=== PATIENT | female | born 1990 | race Caucasian/White ===

== ENCOUNTER 2017-07-29 21:44 | Inpatient (IN) | payer OTHER ==
[~2017-07-29] VITALS: Ht 157.5 cm; Wt 64.4 kg
[~2017-07-29 21:44] MED LIST: CIPR500T94 PO; PHEN-318 PO
--- NOTE | 2017-07-29 21:48 | PHYS DOC ---
Past Medical History Past Medical History: Migraines, UTI Additional Past Medical Histor: 5 months post Past Surgical History: No Surgical History Alcohol Use: None Drug Use: Marijuana Adult General Chief Complaint Chief Complaint: ABDOMINAL PAIN HPI HPI Patient is a 27 year old female who presents with suprapubic pain that started last night. She states is sharp stabbing and is constant. She states moving makes it feel worse. She had some discomfort which had a bowel movement but denies any dysuria. She is 2 weeks late on her period and states that she is currently having some vaginal bleeding. She denies any discharge. She denies any past medical history regarding surgeries or medications. She denies any nausea vomiting. She did take some Advil earlier today and states the pain went away for a couple hours but then returned. Review of Systems Review of Systems Constitutional: Denies fever or chills [] Eyes: Denies change in visual acuity, redness, or eye pain [] HENT: Denies nasal congestion or sore throat [] Respiratory: Denies cough or shortness of breath [] Cardiovascular: No additional information not addressed in HPI [] GI: Positive for abdominal pain, Denies nausea, vomiting, bloody stools or diarrhea [] : Denies dysuria or hematuria [] Musculoskeletal: Denies back pain or joint pain [] Integument: Denies rash or skin lesions [] Neurologic: Denies headache, focal weakness or sensory changes [] Endocrine: Denies polyuria or polydipsia [] All other systems were reviewed and found to be within normal limits, except as documented in this note. Current Medications Current Medications Current Medications Medications (Trade) Dose Ordered Sig/Oanh Start Time Stop Time Status Last Admin Dose Admin Ceftriaxone Sodium 50 ml @ 100 mls/hr 1X ONCE 07/30/17 00:30 07/30/17 00:59 DC 07/30/17 00:26 100 MLS/HR Info (Do NOT chart on this entry -- for MONITORING) 1 each PRN DAILY PRN 07/29/17 23:15 07/31/17 23:14 Iohexol (Omnipaque 300 Mg/ml) 100 ml 1X ONCE 07/29/17 23:30 07/29/17 23:31 DC 07/29/17 23:38 100 ML Morphine Sulfate 4 mg PRN Q15MIN PRN 07/29/17 22:15 07/30/17 22:14 07/30/17 02:20 4 MG Ondansetron HCl (Zofran) 4 mg 1X ONCE 07/29/17 22:30 07/29/17 22:31 DC 07/29/17 22:34 4 MG Sodium Chloride 1,000 ml @ 1,000 mls/hr Q1H 07/29/17 22:30 07/29/17 23:29 DC 07/29/17 22:34 1,000 MLS/HR Allergies Allergies Allergies Coded Allergies Type Severity Reaction Last Updated Verified No Known Drug Allergies 10/28/13 No Physical Exam Physical Exam Constitutional: Well developed, well nourished, no acute distress, non-toxic appearance. [] HENT: Normocephalic, atraumatic, bilateral external ears normal, oropharynx moist, no oral exudates, nose normal. [] Eyes: PERRLA, EOMI, conjunctiva normal, no discharge. [] Neck: Normal range of motion, no tenderness, supple, no stridor. [] Cardiovascular:Heart rate regular rhythm, no murmur [] Lungs & Thorax: Bilateral breath sounds clear to auscultation [] Abdomenpelvic exam: Bowel sounds normal, soft, tender to palpation diffusely, no masses, no pulsatile masses. Pelvic exam shows normal external genitalia, no discharge noted, tender palpation diffusely on manual exam, refuse and recycling worker present Skin: Warm, dry, no erythema, no rash. [] Back: No tenderness, no CVA tenderness. [] Extremities: No tenderness, no cyanosis, no clubbing, ROM intact, no edema. [] Neurologic: Alert and oriented X 3, normal motor function, normal sensory function, no focal deficits noted. [] Psychologic: Affect normal, judgement normal, mood normal. [] Current Patient Data Vital Signs Vital Signs Date Time Temp Pulse Resp B/P (MAP) Pulse Ox O2 Delivery O2 Flow Rate FiO2 07/30/17 00:30 138 23 111/56 (74) 98 07/29/17 23:43 Room Air 07/29/17 22:00 100.7 100.7 Lab Values Laboratory Tests Test 07/29/17 21:46 07/29/17 22:01 07/29/17 22:05 Urine Collection Type Unknown Urine Color Yellow Urine Clarity Clear Urine pH 6.0 Urine Specific [place] >=1.030 Urine Protein Negative mg/dL (NEG-TRACE) Urine Glucose (UA) Negative mg/dL (NEG) Urine Ketones (Stick) Negative mg/dL (NEG) Urine Blood Trace (NEG) Urine Nitrite Negative (NEG) Urine Bilirubin Negative (NEG) Urine Urobilinogen Dipstick 1.0 mg/dL (0.2 mg/dL) Urine Leukocyte Esterase Moderate (NEG) Urine RBC 11-20 /HPF (0-2) Urine WBC Tntc /HPF (0-4) Urine Squamous Epithelial Cells Few /LPF Urine Bacteria Few /HPF (0-FEW) Urine Test Negative (NEG) Urine Opiates Screen Neg (NEG) Urine Methadone Screen Neg (NEG) Urine Barbiturates Neg (NEG) Urine Phencyclidine Screen Neg (NEG) Urine Amphetamine/Methamphetamine Neg (NEG) Urine Benzodiazepines Screen Neg (NEG) Urine Cocaine Screen Neg (NEG) Urine Cannabinoids Screen Neg (NEG) Urine Ethyl Alcohol Neg (NEG) POC Urine HCG, Qualitative Hcg negative (Negative) White Blood Count 24.5 x10^3/uL (4.0-11.0) H Red Blood Count 4.04 x10^6/uL (3.50-5.40) Hemoglobin 12.5 g/dL (12.0-15.5) Hematocrit 37.9 % (36.0-47.0) Mean Corpuscular Volume 94 fL (79-100) Mean Corpuscular Hemoglobin 31 pg (25-35) Mean Corpuscular Hemoglobin Concent 33 g/dL (31-37) Red Cell Distribution Width 12.8 % (11.5-14.5) Platelet Count 288 x10^3/uL (140-400) Neutrophils (%) (Auto) 88 % (31-73) H Lymphocytes (%) (Auto) 7 % (24-48) L Monocytes (%) (Auto) 5 % (0-9) Eosinophils (%) (Auto) 0 % (0-3) Basophils (%) (Auto) 0 % (0-3) Neutrophils # (Auto) 21.5 x10^3uL (1.8-7.7) H Lymphocytes # (Auto) 1.7 x10^3/uL (1.0-4.8) Monocytes # (Auto) 1.1 x10^3/uL (0.0-1.1) Eosinophils # (Auto) 0.1 x10^3/uL (0.0-0.7) Basophils # (Auto) 0.1 x10^3/uL (0.0-0.2) Segmented Neutrophils % 87 % (35-66) H Band Neutrophils % 8 % (0-9) Lymphocytes % 3 % (24-48) L Monocytes % 2 % (0-10) Platelet Estimate Adequate (ADEQUATE) Prothrombin Time 11.7 SEC (11.7-14.0) Prothrombin Time INR 0.9 (0.8-1.1) PTT 30 SEC (24-38) Sodium Level 140 mmol/L (136-145) Potassium Level 3.8 mmol/L (3.5-5.1) Chloride Level 105 mmol/L (98-107) Carbon Dioxide Level 27 mmol/L (21-32) Anion Gap 8 (6-14) Blood Urea Nitrogen 20 mg/dL (7-20) Creatinine 1.0 mg/dL (0.6-1.0) Estimated GFR (Cockcroft-Gault) 66.5 Glucose Level 112 mg/dL (70-99) H Lactic Acid Level 1.1 mmol/L (0.4-2.0) Calcium Level 9.2 mg/dL (8.5-10.1) Total Bilirubin 0.2 mg/dL (0.2-1.0) Direct Bilirubin 0.1 mg/dL (0.0-0.2) Aspartate Amino Transferase (AST) 12 U/L (15-37) L Alanine Aminotransferase (ALT) 15 U/L (14-59) Alkaline Phosphatase 114 U/L (46-116) Creatine Kinase 36 U/L (26-192) Creatine Kinase MB (Mass) < 0.5 ng/mL (0.0-3.6) Creatine Kinase MB Relative Index 1.4 % (0-4) Total Protein 7.8 g/dL (6.4-8.2) Albumin 3.8 g/dL (3.4-5.0) Lipase 94 U/L (73-393) Laboratory Tests 07/29/17 22:05 Laboratory Tests 07/29/17 22:05 Microbiology 07/29/17 Wet Prep - Final, Complete Microbiology 07/29/17 Wet Prep - Final, Complete EKG EKG [] Radiology/Procedures Radiology/Procedures [facility] [address] [place] [address] IMAGING REPORT Signed PATIENT: NATALIA FREDERICK ACCOUNT: [id number] : 1990 LOCATION: ER AGE: 27 SEX: F EXAM STATUS: REG ER ORD. PHYSICIAN: MER THOMAS MD REASON: abd pain PROCEDURE: CT ABD PELV W/ IV CONTRST ONLY CT scan abdomen and pelvis with contrast 07/29/2017 CLINICAL HISTORY: Sharp abdominal pain. TECHNIQUE: After the intravenous administration of 75 cc of Omnipaque 300 only, contiguous, 5 mm axial sections were obtained through the abdomen and pelvis. One or more of the following individualized dose reduction techniques were utilized for this study: 1. Automated exposure control. 2. Adjustment of the mA and/or kV according to patient size. 3. Use of iterative reconstruction technique. FINDINGS: Images through the lung bases are within normal limits. The liver, spleen, pancreas, adrenal glands and kidneys are within normal limits. The abdominal aorta tapers normally. The gallbladder is well-distended. No free fluid or free air is seen within the abdomen. Mildly dilated fluid-filled small bowel loops are seen within the lower mid abdomen extending to the pelvis without definite evidence of bowel obstruction. Air and stool is seen throughout the colon. The appendix is well-visualized and is within normal limits. Images through the pelvis demonstrate the urinary bladder distended with urine. No adnexal mass is seen. No free fluid is noted. Minimal S-shaped curvature of the thoracolumbar spine is noted. IMPRESSION: No acute abnormality is seen. Electronically signed by: Juan Robles MD (07/29/2017 11:53 PM) [facility] DICTATED and SIGNED BY: JUAN ROBLES MD DATE: 07/29/17 [id number] CC: MER THOMAS MD; NO PCP ~ [facility] [address] [place] [address] IMAGING REPORT Signed PATIENT: NATALIA FREDERICK ACCOUNT: [id number] : 1990 LOCATION: ER AGE: 27 SEX: F EXAM STATUS: REG ER ORD. PHYSICIAN: MER THOMAS MD REASON: pelvic pain PROCEDURE: PELVIS W/TV Pelvic ultrasound to include transabdominal and transvaginal imaging 07/29/2017 Clinical history: Pelvic pain for 2 days. TECHNIQUE: Using the distended urinary bladder as a sonographic window, a real-time ultrasound examination of the pelvis was performed. Additionally in an attempt to better evaluate the uterus and adnexa, a transvaginal ultrasound study was performed. Multiple images were obtained. FINDINGS: The uterus is within normal limits in size and echogenicity. It measures 9.7 x 5.7 x 4.3 cm in longitudinal, transverse, and AP dimensions. The endometrial echo complex measures 4 mm in thickness which is within normal limits. Minimal amount of fluid is seen within the endometrial canal. Both ovaries are within normal limits in size and echogenicity. The right ovary measures 4.2 x 2.8 x 2.7 cm in size. The left ovary measures 3.9 x 2.4 x 2.2 cm in size. Normal color flow and pulse doppler imaging to both ovaries is seen. No free fluid is noted. IMPRESSION: Negative study. Electronically signed by: Juan Robles MD (07/29/2017 11:56 PM) [facility] DICTATED and SIGNED BY: JUAN ROBLES MD DATE: 07/29/17 [id number] CC: MER THOMAS MD; NO PCP ~ RUN DATE: 07/30/17 PAGE 1 RUN TIME: 25 [facility] [address] [place] [address] Ty Pelaez M.D., [employer] PATIENT: NATALIA FREDERICK ACCT: [id number] LOC: ER U : [id number] AGE/SX: 27/F ROOM: REG : 07/29/[address]: MER THOMAS MD : 1990 BED: DIS : STATUS: REG ER TLOC: SPEC #: [id number] DENISA: 07/29/17 STATUS: COMP REQ #: [id number] RECD: 07/29/[address]: MER THOMAS MD SOURCE: VAGINAL ENTR: 07/29/[address]: VIK GOMEZ SPDESC: ORDERED: WET PREP COMMENTS: Has specimen been collected/obtained? Y Procedure Result WET PREP Final YEAST NONE SEEN TRICHOMONAS NONE SEEN CLUE CELLS NONE SEEN SQUAMOUS EPS FEW END OF REPORT Impressions: Abdominal pain Course & Med Decision Making Course & Med Decision Making Pertinent Labs and Imaging studies reviewed. (See chart for details) Patient has a leukocytosis of 24,000, she does have a fever upon presentation. She is tachycardic with a rate in the 140s. CT scan of her abdomen pelvis and an ultrasound of pelvis did not show any acute abnormality's. She does have white blood cells too numerous to count of urine with a few bacteria and few squames. I did give her gram of Rocephin and 500 Flagyl and she will need to be admitted with surgery consultation. I did speak with Dr. De Jesus regarding the patient's vital signs, physical exam with her diffuse tenderness to palpation worse in the lower quadrants, her labs with her leukocytosis of 24,000 and her tachycardia in the 150s. I also informed him of the CT and pelvic ultrasound findings that were normal. He asked for [facility] to be consult would. She's received Rocephin, Flagyl and I've added doxycycline IV. I paged [facility] for consultation and at the time the patient went to the floor did not call back. I informed the floor to continue paging [facility] further consultation. Dragon Disclaimer Dragon Disclaimer This electronic medical record was generated, in whole or in part, using a voice recognition dictation system. Departure Departure Impression: Primary Impression: Abdominal pain Disposition: ADMITTED INPATIENT Admitting Physician: Andrade Garcia Condition: CRITICAL Referrals: NO PCP (PCP) Scripts No Active Prescriptions or Reported Meds MER THOMAS MD Jul 29, 2017 21:48
[2017-07-29 22:18] LABS: BASO # 0.1 x10^3/uL (0.0-0.2); BASO % 0 % (0-3); EOS % 0 % (0-3); HEMATOCRIT 37.9 % (36.0-47.0); HEMOGLOBIN 12.5 g/dL (12.0-15.5); LYMPH # 1.7 x10^3/uL (1.0-4.8); LYMPH % 7 % (24-48); MEAN CORPUSCULAR HEMOGLOBIN 31 pg (25-35); MEAN CORPUSCULAR HGB CONC 33 g/dL (31-37); MEAN CORPUSCULAR VOLUME 94 fL (79-100); MONO % 5 % (0-9); NEUT % 88 % (31-73); PLATELET COUNT 288 x10^3/uL (140-400); RED BLOOD COUNT 4.04 x10^6/uL (3.50-5.40); RED CELL DISTRIBUTION WIDTH 12.8 % (11.5-14.5); WHITE BLOOD COUNT 24.5 x10^3/uL (4.0-11.0)
[2017-07-29 22:20] LABS: BILIRUBIN,URINE NEGATIVE (NEG); GLUCOSE,URINE NEGATIVE (NEG); NITRITE,URINE NEGATIVE (NEG); PROTEIN,URINE NEGATIVE (NEG-TRACE)
[2017-07-29] MEDS ORDERED: IV NORMAL SALINE 1000ML BAG 1,000 ML IV SCH (22:30)
[2017-07-29] MEDS ORDERED: ONDANSETRON PF 4 MG/2 ML VIAL. IV ONE (22:30)
[2017-07-29] MEDS: MORPHINE SULFATE 4 MG/ML DISP.SYRIN. IV/SQ PRN ×3 (22:33→23:43)
[2017-07-29 22:36] LABS: INR 0.9 (0.8-1.1); PROTHROMBIN TIME PATIENT 11.7 SEC (11.7-14.0)
[2017-07-29 22:37] LABS: NEG OBC UR NEG; POS OBC UR POS
[2017-07-29 22:38] LABS: BACTERIA,URINE FEW /HPF (0-FEW); SQUAMOUS EPITHELIAL CELL,UR FEW /LPF; WBC,URINE TNTC /HPF (0-4)
[2017-07-29 22:41] LABS: BARBITURATES NEG (NEG); BENZODIAZEPINES NEG (NEG); CANNABINOIDS NEG (NEG); COCAINE NEG (NEG); METHADONE NEG (NEG); OPIATES NEG (NEG); PHENCYCLIDINE NEG (NEG)
[2017-07-29 22:45] LABS: CALCIUM 9.2 mg/dL (8.5-10.1); GFR 66.5; POTASSIUM 3.8 mmol/L (3.5-5.1)
[2017-07-29 22:55] LABS: ALBUMIN 3.8 g/dL (3.4-5.0); DIRECT BILIRUBIN 0.1 mg/dL (0.0-0.2); TOTAL BILIRUBIN 0.2 mg/dL (0.2-1.0); TOTAL PROTEIN 7.8 g/dL (6.4-8.2)
[2017-07-29 23:00] LABS: CREATINE KINASE 36 U/L (26-192)
[2017-07-29 23:12] LABS: CKMB MASS < 0.5 ng/mL (0.0-3.6)
[2017-07-29] MEDS ORDERED: CONTRAST GIVEN MC PRN (23:15)
[2017-07-29] MEDS ORDERED: IOHEXOL 300 MG/ML 100ML VIAL. IV ONE (23:30)
--- NOTE | 2017-07-29 23:57 | RAD ---
CT scan abdomen and pelvis with contrast 07/29/2017 CLINICAL HISTORY: Sharp abdominal pain. TECHNIQUE: After the intravenous administration of 75 cc of Omnipaque 300 only, contiguous, 5 mm axial sections were obtained through the abdomen and pelvis. One or more of the following individualized dose reduction techniques were utilized for this study: 1. Automated exposure control. 2. Adjustment of the mA and/or kV according to patient size. 3. Use of iterative reconstruction technique. FINDINGS: Images through the lung bases are within normal limits. The liver, spleen, pancreas, adrenal glands and kidneys are within normal limits. The abdominal aorta tapers normally. The gallbladder is well-distended. No free fluid or free air is seen within the abdomen. Mildly dilated fluid-filled small bowel loops are seen within the lower mid abdomen extending to the pelvis without definite evidence of bowel obstruction. Air and stool is seen throughout the colon. The appendix is well-visualized and is within normal limits. Images through the pelvis demonstrate the urinary bladder distended with urine. No adnexal mass is seen. No free fluid is noted. Minimal S-shaped curvature of the thoracolumbar spine is noted. IMPRESSION: No acute abnormality is seen. Electronically signed by: Juan Robles MD (07/29/2017 11:53 PM) [facility]
--- NOTE | 2017-07-29 23:59 | RAD ---
Pelvic ultrasound to include transabdominal and transvaginal imaging 07/29/2017 Clinical history: Pelvic pain for 2 days. TECHNIQUE: Using the distended urinary bladder as a sonographic window, a real-time ultrasound examination of the pelvis was performed. Additionally in an attempt to better evaluate the uterus and adnexa, a transvaginal ultrasound study was performed. Multiple images were obtained. FINDINGS: The uterus is within normal limits in size and echogenicity. It measures 9.7 x 5.7 x 4.3 cm in longitudinal, transverse, and AP dimensions. The endometrial echo complex measures 4 mm in thickness which is within normal limits. Minimal amount of fluid is seen within the endometrial canal. Both ovaries are within normal limits in size and echogenicity. The right ovary measures 4.2 x 2.8 x 2.7 cm in size. The left ovary measures 3.9 x 2.4 x 2.2 cm in size. Normal color flow and pulse doppler imaging to both ovaries is seen. No free fluid is noted. IMPRESSION: Negative study. Electronically signed by: Juan Robles MD (07/29/2017 11:56 PM) [facility]
[2017-07-30] VITALS (14 sets, daily range): BP systolic 83–148; BP diastolic 40–73
[2017-07-30] MEDS ORDERED: ACETAMINOPHEN 500 MG TABLET PO ONE (01:00)
[2017-07-30] MEDS ORDERED: IV NORMAL SALINE 1000ML BAG 1,000 ML IV ONE (01:00)
[2017-07-30] MEDS: MORPHINE SULFATE 4 MG/ML DISP.SYRIN. IV/SQ PRN ×2 (01:13→02:20)
[2017-07-30] MEDS ORDERED: ONDANSETRON PF 4 MG/2 ML VIAL. IV PRN (01:15)
[2017-07-30] MEDS: DOXYCYCLINE HYCLATE 100 MG in IV DEXTROSE 5% 100 ML IV SCH ×3 (02:08→21:24)
[2017-07-30 05:13] LABS: PLT ESTIMATE ADEQUATE (ADEQUATE)
[2017-07-30] MEDS: MORPHINE SULFATE 4 MG/ML DISP.SYRIN. IV PRN ×3 (08:58→21:30)
[2017-07-30] MEDS ORDERED: FLU VACC QS2017-18 (36MOS+)/PF 0.5 ML SYRINGE. VAX IM ONE (09:00)
[2017-07-30] MEDS ORDERED: INFLUENZA VAX SCREEN BY RX. MC ONE (09:00)
[2017-07-30] MEDS: LACTOBACILLUS RHAMNOSUS GG 1 CAPSULE. PO SCH ×2 (09:00→21:23)
--- NOTE | 2017-07-30 11:28 | PDOC2 ---
CONSULT Date of Consult Date of Consult DATE: 07/30/17 TIME: 11:23 Reason for Consult Reason for Consult: Abd pain Referring Physician Referring Physician: Radha Identification/Chief Complaint Chief Complaint Abd pain Problems: Source Source: Chart review, Patient History of Present Illness Reason for Visit: 27 yo F with c/o suprapubic abd pain, radiating to her back bilaterally. denies N/V, F/c. Multiple previous episodes of UTI, but no current dysuria. Denies anorexia. Feels much better today, although still some pain. Past Medical History CENTRAL NERVOUS SYSTEM: Migraine Renal/: UTI, Other (5 months ) Past Surgical History Past Surgical History: No pertinent history Family History Family History: No Significant Social History No ALCOHOL: none Drugs: Marijuana Current Problem List Problem List Problems Medical Problems: (1) Abdominal pain Status: Acute Current Medications Current Medications Current Medications Morphine Sulfate 4 mg PRN Q15MIN PRN IV/SQ PAIN GREATER THAN 3/10 Last administered on 07/30/17 02:20; Start 07/29/17 at 22:15; Stop 07/30/17 at 22 :14 Sodium Chloride 1,000 ml @ 1,000 mls/hr Q1H IV Last administered on 22:34; Start 07/29/17 at 22:30; Stop 07/29/17 at 23:29; Status DC Ondansetron HCl (Zofran) 4 mg 1X ONCE IV Last administered on 07/29/17 22:34 ; Start 07/29/17 at 22:30; Stop 07/29/17 at 22:31; Status DC Iohexol (Omnipaque 300 Mg/ml) 100 ml 1X ONCE IV Last administered on 23:38; Start 07/29/17 at 23:30; Stop 07/29/17 at 23:31; Status DC Info (Do NOT chart on this entry -- for MONITORING) 1 each PRN DAILY PRN MC SEE COMMENTS; Start 07/29/17 at 23:15; Stop 07/31/17 at 23:14 Ceftriaxone Sodium 50 ml @ 100 mls/hr 1X ONCE IV Last administered on 00:26; Start 07/30/17 at 00:30; Stop 07/30/17 at 00:59; Status DC Metronidazole 100 ml @ 100 mls/hr Q8HRS IV Last administered on 07/30/17 05: 56; Start 07/30/17 at 01:00 Sodium Chloride 1,000 ml @ 1,000 mls/hr 1X ONCE IV Last administered on 07/30 00:48; Start 07/30/17 at 01:00; Stop 07/30/17 at 01:59; Status DC Acetaminophen (Tylenol) 1,000 mg 1X ONCE PO Last administered on 07/30/17 00 :53; Start 07/30/17 at 01:00; Stop 07/30/17 at 01:01; Status DC Doxycycline Hyclate 100 mg/ Dextrose 100 ml @ 50 mls/hr BID IV Last administered on 07/30/17 08:59; Start 07/30/17 at 02:00 Ondansetron HCl (Zofran) 4 mg PRN Q8HRS PRN IV NAUSEA/VOMITING Last administered on 07/30/17 11:00; Start 07/30/17 at 01:15; Stop 07/31/17 at 01 :14 Morphine Sulfate 4 mg PRN Q2HR PRN IV SEVERE PAIN Last administered on 08:58; Start 07/30/17 at 01:15; Stop 07/31/17 at 01:14 Info (Do NOT chart on this placeholder) 1 each 1X ONCE MC ; Start 07/30/17 at 09:00; Stop 07/30/17 at 09:01; Status UNV Influenza Virus Vaccine Quadrival (Fluarix Quad [id number] Syringe) 0.5 ml ONCE ONCE VAX IM Last administered on 07/30/17 08:59; Start 07/30/17 at 09:00; Stop 07/30/17 at 09:01; Status DC Lactobacillus Rhamnosus (Culturelle) 1 cap BID PO ; Start 07/30/17 at 09:00 Ceftriaxone Sodium 1 gm/ Dextrose 50 ml @ 100 mls/hr Q24H IV ; Start 07/30/17 at 11:15; Stop 07/30/17 at 11:21; Status DC Ceftriaxone Sodium (Rocephin) 1 gm Q24H IVP ; Start 07/30/17 at 12:00 Active Scripts Active No Active Prescriptions or Reported Medications Allergies Allergies: Coded Allergies: No Known Drug Allergies (Unverified , 10/28/13) ROS Gastrointestinal: Yes Abdominal Pain Physical Exam General: Alert, Oriented X3, Cooperative, mild distress HEENT: Atraumatic, EOMI Lungs: Normal air movement Abdomen: Soft, Other (TTP suprapubic, B CVA margin) Neuro: Normal speech, Sensation intact Psych/Mental Status: Mental status NL, Mood NL Vitals VITALS Vital Signs Date Time Temp Pulse Resp B/P (MAP) Pulse Ox O2 Delivery O2 Flow Rate FiO2 07/30/17 11:00 104 16 110/67 (81) 96 07/30/17 10:00 Room Air 07/30/17 08:00 98.8 98.8 Labs Labs Laboratory Tests Test 07/29/17 21:46 07/29/17 22:01 07/29/17 22:05 07/30/17 05:25 Urine Collection Type Unknown Urine Color Yellow Urine Clarity Clear Urine pH 6.0 Urine Specific [place] >=1.030 Urine Protein Negative mg/dL (NEG-TRACE) Urine Glucose (UA) Negative mg/dL (NEG) Urine Ketones (Stick) Negative mg/dL (NEG) Urine Blood Trace (NEG) Urine Nitrite Negative (NEG) Urine Bilirubin Negative (NEG) Urine Urobilinogen Dipstick 1.0 mg/dL (0.2 mg/dL) Urine Leukocyte Esterase Moderate (NEG) Urine RBC 11-20 /HPF (0-2) Urine WBC Tntc /HPF (0-4) Urine Squamous Epithelial Cells Few /LPF Urine Bacteria Few /HPF (0-FEW) Urine Test Negative (NEG) Urine Opiates Screen Neg (NEG) Urine Methadone Screen Neg (NEG) Urine Barbiturates Neg (NEG) Urine Phencyclidine Screen Neg (NEG) Urine Amphetamine/Methamphetamine Neg (NEG) Urine Benzodiazepines Screen Neg (NEG) Urine Cocaine Screen Neg (NEG) Urine Cannabinoids Screen Neg (NEG) Urine Ethyl Alcohol Neg (NEG) Bedside Urine HCG, Qualitative Hcg negative (Negative) White Blood Count 24.5 x10^3/uL (4.0-11.0) Red Blood Count 4.04 x10^6/uL (3.50-5.40) Hemoglobin 12.5 g/dL (12.0-15.5) Hematocrit 37.9 % (36.0-47.0) Mean Corpuscular Volume 94 fL (79-100) Mean Corpuscular Hemoglobin 31 pg (25-35) Mean Corpuscular Hemoglobin Concent 33 g/dL (31-37) Red Cell Distribution Width 12.8 % (11.5-14.5) Platelet Count 288 x10^3/uL (140-400) Neutrophils (%) (Auto) 88 % (31-73) Lymphocytes (%) (Auto) 7 % (24-48) Monocytes (%) (Auto) 5 % (0-9) Eosinophils (%) (Auto) 0 % (0-3) Basophils (%) (Auto) 0 % (0-3) Neutrophils # (Auto) 21.5 x10^3uL (1.8-7.7) Lymphocytes # (Auto) 1.7 x10^3/uL (1.0-4.8) Monocytes # (Auto) 1.1 x10^3/uL (0.0-1.1) Eosinophils # (Auto) 0.1 x10^3/uL (0.0-0.7) Basophils # (Auto) 0.1 x10^3/uL (0.0-0.2) Segmented Neutrophils % 87 % (35-66) Band Neutrophils % 8 % (0-9) Lymphocytes % 3 % (24-48) Monocytes % 2 % (0-10) Platelet Estimate Adequate (ADEQUATE) Prothrombin Time 11.7 SEC (11.7-14.0) Prothromb Time International Ratio 0.9 (0.8-1.1) Activated Partial Thromboplast Time 30 SEC (24-38) Sodium Level 140 mmol/L (136-145) Potassium Level 3.8 mmol/L (3.5-5.1) Chloride Level 105 mmol/L (98-107) Carbon Dioxide Level 27 mmol/L (21-32) Anion Gap 8 (6-14) Blood Urea Nitrogen 20 mg/dL (7-20) Creatinine 1.0 mg/dL (0.6-1.0) Estimated GFR (Cockcroft-Gault) 66.5 Glucose Level 112 mg/dL (70-99) Lactic Acid Level 1.1 mmol/L (0.4-2.0) 1.0 mmol/L (0.4-2.0) Calcium Level 9.2 mg/dL (8.5-10.1) Total Bilirubin 0.2 mg/dL (0.2-1.0) Direct Bilirubin 0.1 mg/dL (0.0-0.2) Aspartate Amino Transf (AST/SGOT) 12 U/L (15-37) Alanine Aminotransferase (ALT/SGPT) 15 U/L (14-59) Alkaline Phosphatase 114 U/L (46-116) Creatine Kinase 36 U/L (26-192) Creatine Kinase MB (Mass) < 0.5 ng/mL (0.0-3.6) Creatine Kinase MB Relative Index 1.4 % (0-4) Total Protein 7.8 g/dL (6.4-8.2) Albumin 3.8 g/dL (3.4-5.0) Lipase 94 U/L (73-393) Laboratory Tests Test 07/29/17 21:46 07/29/17 22:01 07/29/17 22:05 07/30/17 05:25 Urine Collection Type Unknown Urine Color Yellow Urine Clarity Clear Urine pH 6.0 Urine Specific [place] >=1.030 Urine Protein Negative mg/dL (NEG-TRACE) Urine Glucose (UA) Negative mg/dL (NEG) Urine Ketones (Stick) Negative mg/dL (NEG) Urine Blood Trace (NEG) Urine Nitrite Negative (NEG) Urine Bilirubin Negative (NEG) Urine Urobilinogen Dipstick 1.0 mg/dL (0.2 mg/dL) Urine Leukocyte Esterase Moderate (NEG) Urine RBC 11-20 /HPF (0-2) Urine WBC Tntc /HPF (0-4) Urine Squamous Epithelial Cells Few /LPF Urine Bacteria Few /HPF (0-FEW) Urine Test Negative (NEG) Urine Opiates Screen Neg (NEG) Urine Methadone Screen Neg (NEG) Urine Barbiturates Neg (NEG) Urine Phencyclidine Screen Neg (NEG) Urine Amphetamine/Methamphetamine Neg (NEG) Urine Benzodiazepines Screen Neg (NEG) Urine Cocaine Screen Neg (NEG) Urine Cannabinoids Screen Neg (NEG) Urine Ethyl Alcohol Neg (NEG) Bedside Urine HCG, Qualitative Hcg negative (Negative) White Blood Count 24.5 x10^3/uL (4.0-11.0) Red Blood Count 4.04 x10^6/uL (3.50-5.40) Hemoglobin 12.5 g/dL (12.0-15.5) Hematocrit 37.9 % (36.0-47.0) Mean Corpuscular Volume 94 fL (79-100) Mean Corpuscular Hemoglobin 31 pg (25-35) Mean Corpuscular Hemoglobin Concent 33 g/dL (31-37) Red Cell Distribution Width 12.8 % (11.5-14.5) Platelet Count 288 x10^3/uL (140-400) Neutrophils (%) (Auto) 88 % (31-73) Lymphocytes (%) (Auto) 7 % (24-48) Monocytes (%) (Auto) 5 % (0-9) Eosinophils (%) (Auto) 0 % (0-3) Basophils (%) (Auto) 0 % (0-3) Neutrophils # (Auto) 21.5 x10^3uL (1.8-7.7) Lymphocytes # (Auto) 1.7 x10^3/uL (1.0-4.8) Monocytes # (Auto) 1.1 x10^3/uL (0.0-1.1) Eosinophils # (Auto) 0.1 x10^3/uL (0.0-0.7) Basophils # (Auto) 0.1 x10^3/uL (0.0-0.2) Segmented Neutrophils % 87 % (35-66) Band Neutrophils % 8 % (0-9) Lymphocytes % 3 % (24-48) Monocytes % 2 % (0-10) Platelet Estimate Adequate (ADEQUATE) Prothrombin Time 11.7 SEC (11.7-14.0) Prothromb Time International Ratio 0.9 (0.8-1.1) Activated Partial Thromboplast Time 30 SEC (24-38) Sodium Level 140 mmol/L (136-145) Potassium Level 3.8 mmol/L (3.5-5.1) Chloride Level 105 mmol/L (98-107) Carbon Dioxide Level 27 mmol/L (21-32) Anion Gap 8 (6-14) Blood Urea Nitrogen 20 mg/dL (7-20) Creatinine 1.0 mg/dL (0.6-1.0) Estimated GFR (Cockcroft-Gault) 66.5 Glucose Level 112 mg/dL (70-99) Lactic Acid Level 1.1 mmol/L (0.4-2.0) 1.0 mmol/L (0.4-2.0) Calcium Level 9.2 mg/dL (8.5-10.1) Total Bilirubin 0.2 mg/dL (0.2-1.0) Direct Bilirubin 0.1 mg/dL (0.0-0.2) Aspartate Amino Transf (AST/SGOT) 12 U/L (15-37) Alanine Aminotransferase (ALT/SGPT) 15 U/L (14-59) Alkaline Phosphatase 114 U/L (46-116) Creatine Kinase 36 U/L (26-192) Creatine Kinase MB (Mass) < 0.5 ng/mL (0.0-3.6) Creatine Kinase MB Relative Index 1.4 % (0-4) Total Protein 7.8 g/dL (6.4-8.2) Albumin 3.8 g/dL (3.4-5.0) Lipase 94 U/L (73-393) Images Images CT wnl Assessment/Plan Assessment/Plan Abd pain, favor UTI clinically improved on abx with decreased tachycardia will ADAT recheck CBC cont abx no surgical plans Thanks for consult! AMERICO GARCIA MD Jul 30, 2017 11:28
--- NOTE | 2017-07-30 11:34 | SSS ---
ADMIT DATE: SHORT STAY SUMMARY CHIEF COMPLAINT: Abdominal pain. HISTORY OF PRESENT ILLNESS: The patient is a pleasant, relatively healthy 27-year-old female who presented with abdominal pain that has been occurring for a few hours. Moving made it feel worse, sitting still made it feel better. She has also started her period. I discussed the case with the ER physician. We have admitted the patient. This morning, she is feeling better. She wants to go home. PAST MEDICAL HISTORY: Migraines, UTI and 5 months . ALLERGIES: None. FAMILY HISTORY: Hypertension. SOCIAL HISTORY: She smokes marijuana. No drinking or drugs. MEDICATIONS: Reviewed. REVIEW OF SYSTEMS: GENERAL: No history of weight change, weakness or fevers. SKIN: No bruising, hair changes or rashes. EYES: No blurred, double or loss of vision. NOSE AND THROAT: No history of nosebleeds, hoarseness or sore throat. HEART: No history of palpitations, chest pain or shortness of breath on exertion. LUNGS: Denies cough, hemoptysis, wheezing or shortness of breath. GASTROINTESTINAL: Denies changes in appetite, nausea, vomiting, diarrhea or constipation. GENITOURINARY: No history of frequency, urgency, hesitancy or nocturia. NEUROLOGIC: Denies history of numbness, tingling, tremor or weakness. PSYCHIATRIC: No history of panic, anxiety or depression. ENDOCRINE: No history of heat or cold intolerance, polyuria or polydipsia. EXTREMITIES: Denies muscle weakness, joint pain, pain on walking or stiffness. PHYSICAL EXAMINATION: VITAL SIGNS: Stable. GENERAL: She is alert, cooperative. HEART: Normal S1, S2. LUNGS: Clear. ABDOMEN: Soft. Positive bowel sounds. Nontender. EXTREMITIES: No edema. SKIN: No rashes. ENDOCRINE: No thyromegaly. LYMPHATICS: No cervical nodes. HEMATOPOIETIC: No bruising. ASSESSMENT AND PLAN: Resolving abdominal pain, probably menstrual cramps. The patient is doing great. She wants to go home, we will discharge. DISPOSITION: Home. ACTIVITY: As tolerated. DIET: Low sodium. MEDICATIONS: Please see the MRAD. TOTAL TIME: 31 minutes. PEGGY MARISCAL DO DR: KWAKU/armen JOB#: [id number] / [id number]
[2017-07-30 11:36] LABS: BASO # 0.1 x10^3/uL (0.0-0.2); BASO % 0 % (0-3); EOS % 0 % (0-3); HEMATOCRIT 36.8 % (36.0-47.0); LYMPH # 1.8 x10^3/uL (1.0-4.8); LYMPH % 7 % (24-48); MEAN CORPUSCULAR HEMOGLOBIN 31 pg (25-35); MEAN CORPUSCULAR HGB CONC 33 g/dL (31-37); MEAN CORPUSCULAR VOLUME 94 fL (79-100); MONO % 4 % (0-9); NEUT % 89 % (31-73); PLATELET COUNT 278 x10^3/uL (140-400); RED CELL DISTRIBUTION WIDTH 13.1 % (11.5-14.5); WHITE BLOOD COUNT 26.7 x10^3/uL (4.0-11.0)
[2017-07-30] MEDS: cefTRIAXone IV Push 1 GM VIAL. IVP SCH (12:10)
[2017-07-30] MEDS ORDERED: fentaNYL PF VIAL 100 MCG/2 ML VIAL IV PRN (15:30)
[2017-07-30] MEDS ORDERED: oxyCODONE/APAP 5/325 1 TAB TABLET PO PRN (17:00)
[2017-07-30] MEDS: oxyCODONE/APAP 5/325 1 TAB TABLET PO PRN ×2 (17:16→22:14)
--- NOTE | 2017-07-30 23:25 | HP ---
ADMIT DATE: 07/30/2017 ADDENDUM LABORATORY DATA: White count 24, hemoglobin 12, platelets 288. INR 0.9. Electrolytes normal other than glucose of 112. Drug screen negative. Urinalysis shows too numerous to count white cells and moderate leukocyte esterase. ASSESSMENT AND PLAN: In view of the above lab results, the patient is also diagnosed with pyelonephritis. We will continue antibiotics and IV fluids and hold her discharge for now. PEGGY MARISCAL DO DR: KWAKU/armen JOB#: [id number] / [id number]
[2017-07-31] MEDS ORDERED: SODIUM CHLORIDE 0.65% NASAL SPRAY 45ML BOTTLE. NS PRN (00:30)
[2017-07-31] MEDS ORDERED: diphenhydrAMINE HCL 25 MG CAPSULE PO ONE (02:30)
[2017-07-31 03:11] VITALS: BP 107/58
[2017-07-31 05:27] LABS: BASO # 0.1 x10^3/uL (0.0-0.2); BASO % 1 % (0-3); EOS % 1 % (0-3); HEMATOCRIT 33.9 % (36.0-47.0); HEMOGLOBIN 11.2 g/dL (12.0-15.5); LYMPH # 1.8 x10^3/uL (1.0-4.8); LYMPH % 13 % (24-48); MEAN CORPUSCULAR HEMOGLOBIN 31 pg (25-35); MEAN CORPUSCULAR HGB CONC 33 g/dL (31-37); MEAN CORPUSCULAR VOLUME 94 fL (79-100); MONO % 3 % (0-9); NEUT % 82 % (31-73); PLATELET COUNT 254 x10^3/uL (140-400); RED BLOOD COUNT 3.61 x10^6/uL (3.50-5.40); RED CELL DISTRIBUTION WIDTH 13.1 % (11.5-14.5); WHITE BLOOD COUNT 13.4 x10^3/uL (4.0-11.0)
[2017-07-31 05:51] LABS: CALCIUM 8.1 mg/dL (8.5-10.1); CREATININE 0.7 mg/dL (0.6-1.0); GFR 100.4; POTASSIUM 3.5 mmol/L (3.5-5.1)
[2017-07-31] MEDS: metroNIDAZOLE 500 MG TABLET PO SCH ×2 (06:28→08:30)
[2017-07-31] MEDS: oxyCODONE/APAP 5/325 1 TAB TABLET PO PRN ×2 (06:32→10:37)
[2017-07-31] MEDS ORDERED: DOCUSATE SODIUM 100 MG CAPSULE. PO PRN (07:15)
[2017-07-31 08:00] VITALS: BP 125/72
[2017-07-31] MEDS: LACTOBACILLUS RHAMNOSUS GG 1 CAPSULE. PO SCH (08:30)
[2017-07-31] MEDS ORDERED: DOXYCYCLINE HYCLATE 100 MG TABLET PO SCH (09:00)
--- NOTE | 2017-07-31 11:19 | PDOC ---
SURGICAL PROGRESS NOTE Subjective a little better "scared" about surgery Vital Signs Vital Signs Date Time Temp Pulse Resp B/P (MAP) Pulse Ox O2 Delivery O2 Flow Rate FiO2 07/31/17 10:37 Room Air 07/31/17 08:00 97.3 95 16 125/72 (89) 95 97.3 I&O Intake and Output 07/31/17 06:59 Intake Total 640 ml Output Total 350 ml Balance 290 ml Intake Oral 440 ml IV Total 200 ml Output Urine Total 350 ml # Voids 3 PATIENT HAS A HINSON: No General: Alert, No acute distress Abdomen: Soft Labs Laboratory Tests Test 07/29/17 21:46 07/29/17 22:01 07/29/17 22:05 07/30/17 02:00 Urine Collection Type Unknown Urine Color Yellow Urine Clarity Clear Urine pH 6.0 Urine Specific [place] >=1.030 Urine Protein Negative mg/dL (NEG-TRACE) Urine Glucose (UA) Negative mg/dL (NEG) Urine Ketones (Stick) Negative mg/dL (NEG) Urine Blood Trace (NEG) Urine Nitrite Negative (NEG) Urine Bilirubin Negative (NEG) Urine Urobilinogen Dipstick 1.0 mg/dL (0.2 mg/dL) Urine Leukocyte Esterase Moderate (NEG) Urine RBC 11-20 /HPF (0-2) Urine WBC Tntc /HPF (0-4) Urine Squamous Epithelial Cells Few /LPF Urine Bacteria Few /HPF (0-FEW) Urine Test Negative (NEG) Urine Opiates Screen Neg (NEG) Urine Methadone Screen Neg (NEG) Urine Barbiturates Neg (NEG) Urine Phencyclidine Screen Neg (NEG) Urine Amphetamine/Methamphetamine Neg (NEG) Urine Benzodiazepines Screen Neg (NEG) Urine Cocaine Screen Neg (NEG) Urine Cannabinoids Screen Neg (NEG) Urine Ethyl Alcohol Neg (NEG) Bedside Urine HCG, Qualitative Hcg negative (Negative) White Blood Count 24.5 x10^3/uL (4.0-11.0) Red Blood Count 4.04 x10^6/uL (3.50-5.40) Hemoglobin 12.5 g/dL (12.0-15.5) Hematocrit 37.9 % (36.0-47.0) Mean Corpuscular Volume 94 fL (79-100) Mean Corpuscular Hemoglobin 31 pg (25-35) Mean Corpuscular Hemoglobin Concent 33 g/dL (31-37) Red Cell Distribution Width 12.8 % (11.5-14.5) Platelet Count 288 x10^3/uL (140-400) Neutrophils (%) (Auto) 88 % (31-73) Lymphocytes (%) (Auto) 7 % (24-48) Monocytes (%) (Auto) 5 % (0-9) Eosinophils (%) (Auto) 0 % (0-3) Basophils (%) (Auto) 0 % (0-3) Neutrophils # (Auto) 21.5 x10^3uL (1.8-7.7) Lymphocytes # (Auto) 1.7 x10^3/uL (1.0-4.8) Monocytes # (Auto) 1.1 x10^3/uL (0.0-1.1) Eosinophils # (Auto) 0.1 x10^3/uL (0.0-0.7) Basophils # (Auto) 0.1 x10^3/uL (0.0-0.2) Segmented Neutrophils % 87 % (35-66) Band Neutrophils % 8 % (0-9) Lymphocytes % 3 % (24-48) Monocytes % 2 % (0-10) Platelet Estimate Adequate (ADEQUATE) Prothrombin Time 11.7 SEC (11.7-14.0) Prothromb Time International Ratio 0.9 (0.8-1.1) Activated Partial Thromboplast Time 30 SEC (24-38) Sodium Level 140 mmol/L (136-145) Potassium Level 3.8 mmol/L (3.5-5.1) Chloride Level 105 mmol/L (98-107) Carbon Dioxide Level 27 mmol/L (21-32) Anion Gap 8 (6-14) Blood Urea Nitrogen 20 mg/dL (7-20) Creatinine 1.0 mg/dL (0.6-1.0) Estimated GFR (Cockcroft-Gault) 66.5 Glucose Level 112 mg/dL (70-99) Lactic Acid Level 1.1 mmol/L (0.4-2.0) Calcium Level 9.2 mg/dL (8.5-10.1) Total Bilirubin 0.2 mg/dL (0.2-1.0) Direct Bilirubin 0.1 mg/dL (0.0-0.2) Aspartate Amino Transf (AST/SGOT) 12 U/L (15-37) Alanine Aminotransferase (ALT/SGPT) 15 U/L (14-59) Alkaline Phosphatase 114 U/L (46-116) Creatine Kinase 36 U/L (26-192) Creatine Kinase MB (Mass) < 0.5 ng/mL (0.0-3.6) Creatine Kinase MB Relative Index 1.4 % (0-4) Total Protein 7.8 g/dL (6.4-8.2) Albumin 3.8 g/dL (3.4-5.0) Lipase 94 U/L (73-393) Nasal Screen MRSA (PCR) Negative (Negative) Test 07/30/17 05:25 07/30/17 11:20 07/31/17 04:00 Lactic Acid Level 1.0 mmol/L (0.4-2.0) White Blood Count 26.7 x10^3/uL (4.0-11.0) 13.4 x10^3/uL (4.0-11.0) Red Blood Count 3.90 x10^6/uL (3.50-5.40) 3.61 x10^6/uL (3.50-5.40) Hemoglobin 12.0 g/dL (12.0-15.5) 11.2 g/dL (12.0-15.5) Hematocrit 36.8 % (36.0-47.0) 33.9 % (36.0-47.0) Mean Corpuscular Volume 94 fL (79-100) 94 fL (79-100) Mean Corpuscular Hemoglobin 31 pg (25-35) 31 pg (25-35) Mean Corpuscular Hemoglobin Concent 33 g/dL (31-37) 33 g/dL (31-37) Red Cell Distribution Width 13.1 % (11.5-14.5) 13.1 % (11.5-14.5) Platelet Count 278 x10^3/uL (140-400) 254 x10^3/uL (140-400) Neutrophils (%) (Auto) 89 % (31-73) 82 % (31-73) Lymphocytes (%) (Auto) 7 % (24-48) 13 % (24-48) Monocytes (%) (Auto) 4 % (0-9) 3 % (0-9) Eosinophils (%) (Auto) 0 % (0-3) 1 % (0-3) Basophils (%) (Auto) 0 % (0-3) 1 % (0-3) Neutrophils # (Auto) 23.8 x10^3uL (1.8-7.7) 10.9 x10^3uL (1.8-7.7) Lymphocytes # (Auto) 1.8 x10^3/uL (1.0-4.8) 1.8 x10^3/uL (1.0-4.8) Monocytes # (Auto) 1.0 x10^3/uL (0.0-1.1) 0.4 x10^3/uL (0.0-1.1) Eosinophils # (Auto) 0.0 x10^3/uL (0.0-0.7) 0.2 x10^3/uL (0.0-0.7) Basophils # (Auto) 0.1 x10^3/uL (0.0-0.2) 0.1 x10^3/uL (0.0-0.2) Sodium Level 139 mmol/L (136-145) Potassium Level 3.5 mmol/L (3.5-5.1) Chloride Level 106 mmol/L (98-107) Carbon Dioxide Level 27 mmol/L (21-32) Anion Gap 6 (6-14) Blood Urea Nitrogen 12 mg/dL (7-20) Creatinine 0.7 mg/dL (0.6-1.0) Estimated GFR (Cockcroft-Gault) 100.4 Glucose Level 106 mg/dL (70-99) Calcium Level 8.1 mg/dL (8.5-10.1) Laboratory Tests Test 07/30/17 11:20 07/31/17 04:00 White Blood Count 26.7 x10^3/uL (4.0-11.0) 13.4 x10^3/uL (4.0-11.0) Red Blood Count 3.90 x10^6/uL (3.50-5.40) 3.61 x10^6/uL (3.50-5.40) Hemoglobin 12.0 g/dL (12.0-15.5) 11.2 g/dL (12.0-15.5) Hematocrit 36.8 % (36.0-47.0) 33.9 % (36.0-47.0) Mean Corpuscular Volume 94 fL (79-100) 94 fL (79-100) Mean Corpuscular Hemoglobin 31 pg (25-35) 31 pg (25-35) Mean Corpuscular Hemoglobin Concent 33 g/dL (31-37) 33 g/dL (31-37) Red Cell Distribution Width 13.1 % (11.5-14.5) 13.1 % (11.5-14.5) Platelet Count 278 x10^3/uL (140-400) 254 x10^3/uL (140-400) Neutrophils (%) (Auto) 89 % (31-73) 82 % (31-73) Lymphocytes (%) (Auto) 7 % (24-48) 13 % (24-48) Monocytes (%) (Auto) 4 % (0-9) 3 % (0-9) Eosinophils (%) (Auto) 0 % (0-3) 1 % (0-3) Basophils (%) (Auto) 0 % (0-3) 1 % (0-3) Neutrophils # (Auto) 23.8 x10^3uL (1.8-7.7) 10.9 x10^3uL (1.8-7.7) Lymphocytes # (Auto) 1.8 x10^3/uL (1.0-4.8) 1.8 x10^3/uL (1.0-4.8) Monocytes # (Auto) 1.0 x10^3/uL (0.0-1.1) 0.4 x10^3/uL (0.0-1.1) Eosinophils # (Auto) 0.0 x10^3/uL (0.0-0.7) 0.2 x10^3/uL (0.0-0.7) Basophils # (Auto) 0.1 x10^3/uL (0.0-0.2) 0.1 x10^3/uL (0.0-0.2) Sodium Level 139 mmol/L (136-145) Potassium Level 3.5 mmol/L (3.5-5.1) Chloride Level 106 mmol/L (98-107) Carbon Dioxide Level 27 mmol/L (21-32) Anion Gap 6 (6-14) Blood Urea Nitrogen 12 mg/dL (7-20) Creatinine 0.7 mg/dL (0.6-1.0) Estimated GFR (Cockcroft-Gault) 100.4 Glucose Level 106 mg/dL (70-99) Calcium Level 8.1 mg/dL (8.5-10.1) Problem List Problems Medical Problems: (1) Abdominal pain Status: Acute Assessment/Plan UTI WBC coming down no acute surgical recs explained to Nelly that at present we have no surgical recommendations for her to be scared about Problems: AMADO REEVES MD Jul 31, 2017 11:19
[2017-07-31] MEDS: cefTRIAXone IV Push 1 GM VIAL. IVP SCH (12:00)
[2017-07-31 12:14] VITALS: BP 118/70
[2017-07-31] MEDS ORDERED: CEFPODOXIME PROXETIL 100 MG TABLET. PO SCH (14:00)
--- NOTE | 2017-07-31 14:29 | PDOC ---
PROGRESS NOTES Chief Complaint Chief Complaint Abd Pain History of Present Illness History of Present Illness Pt Lying In bed, Admits Abd Pain, Otherwise healthy Pt hoping to DC WBC significantly Decreased 13.4 Ordered Augmentin, Pyridium, Percocet, Augmentin Recommended Cranberry Juice, and Probiotics Vitals Vitals Vital Signs Date Time Temp Pulse Resp B/P (MAP) Pulse Ox O2 Delivery O2 Flow Rate FiO2 07/31/17 12:14 98.1 82 16 118/70 (86) 96 Room Air 98.1 Physical Exam General: Alert, Oriented X3, Cooperative, No acute distress Heart: Regular rate, Normal S1, No murmurs Lungs: Clear, Other (No RRW) Abdomen: Soft, Other (Distended with Suprapubic Tenderness) Extremities: No clubbing, No cyanosis, No edema Skin: No rashes, No breakdown Labs LABS Laboratory Tests Test 07/31/17 04:00 White Blood Count 13.4 x10^3/uL (4.0-11.0) Red Blood Count 3.61 x10^6/uL (3.50-5.40) Hemoglobin 11.2 g/dL (12.0-15.5) Hematocrit 33.9 % (36.0-47.0) Mean Corpuscular Volume 94 fL (79-100) Mean Corpuscular Hemoglobin 31 pg (25-35) Mean Corpuscular Hemoglobin Concent 33 g/dL (31-37) Red Cell Distribution Width 13.1 % (11.5-14.5) Platelet Count 254 x10^3/uL (140-400) Neutrophils (%) (Auto) 82 % (31-73) Lymphocytes (%) (Auto) 13 % (24-48) Monocytes (%) (Auto) 3 % (0-9) Eosinophils (%) (Auto) 1 % (0-3) Basophils (%) (Auto) 1 % (0-3) Neutrophils # (Auto) 10.9 x10^3uL (1.8-7.7) Lymphocytes # (Auto) 1.8 x10^3/uL (1.0-4.8) Monocytes # (Auto) 0.4 x10^3/uL (0.0-1.1) Eosinophils # (Auto) 0.2 x10^3/uL (0.0-0.7) Basophils # (Auto) 0.1 x10^3/uL (0.0-0.2) Sodium Level 139 mmol/L (136-145) Potassium Level 3.5 mmol/L (3.5-5.1) Chloride Level 106 mmol/L (98-107) Carbon Dioxide Level 27 mmol/L (21-32) Anion Gap 6 (6-14) Blood Urea Nitrogen 12 mg/dL (7-20) Creatinine 0.7 mg/dL (0.6-1.0) Estimated GFR (Cockcroft-Gault) 100.4 Glucose Level 106 mg/dL (70-99) Calcium Level 8.1 mg/dL (8.5-10.1) Review of Systems Review of Systems General: No Hunger, Fatigue CV: No Chest Pain, Palpitations Assessment and Plan Assessmemt and Plan Assessment: Pyelonephritis Probable Probable UTI Abd Pain Plan: Pyridium 200 mg 1 tab PO Q6H - Ordered Augmentin ( Pyelonephritis)- Ordered Percocet 20 tabs PRN for Pain- Ordered Recommended Cranberyy Juice and Probiotics DC probable Today Continue Monitor WBC Continue Monitor Potassium(3.5) Continue Home Meds Continue PT/OT Recheck Labs Problems: Comment Review of Relevant I have reviewed the following items isaias (where applicable) has been applied. Labs Laboratory Tests Test 07/29/17 21:46 07/29/17 22:01 07/29/17 22:05 07/30/17 02:00 Urine Collection Type Unknown Urine Color Yellow Urine Clarity Clear Urine pH 6.0 Urine Specific Lackey >=1.030 Urine Protein Negative mg/dL (NEG-TRACE) Urine Glucose (UA) Negative mg/dL (NEG) Urine Ketones (Stick) Negative mg/dL (NEG) Urine Blood Trace (NEG) Urine Nitrite Negative (NEG) Urine Bilirubin Negative (NEG) Urine Urobilinogen Dipstick 1.0 mg/dL (0.2 mg/dL) Urine Leukocyte Esterase Moderate (NEG) Urine RBC 11-20 /HPF (0-2) Urine WBC Tntc /HPF (0-4) Urine Squamous Epithelial Cells Few /LPF Urine Bacteria Few /HPF (0-FEW) Urine Test Negative (NEG) Urine Opiates Screen Neg (NEG) Urine Methadone Screen Neg (NEG) Urine Barbiturates Neg (NEG) Urine Phencyclidine Screen Neg (NEG) Urine Amphetamine/Methamphetamine Neg (NEG) Urine Benzodiazepines Screen Neg (NEG) Urine Cocaine Screen Neg (NEG) Urine Cannabinoids Screen Neg (NEG) Urine Ethyl Alcohol Neg (NEG) Bedside Urine HCG, Qualitative Hcg negative (Negative) White Blood Count 24.5 x10^3/uL (4.0-11.0) Red Blood Count 4.04 x10^6/uL (3.50-5.40) Hemoglobin 12.5 g/dL (12.0-15.5) Hematocrit 37.9 % (36.0-47.0) Mean Corpuscular Volume 94 fL (79-100) Mean Corpuscular Hemoglobin 31 pg (25-35) Mean Corpuscular Hemoglobin Concent 33 g/dL (31-37) Red Cell Distribution Width 12.8 % (11.5-14.5) Platelet Count 288 x10^3/uL (140-400) Neutrophils (%) (Auto) 88 % (31-73) Lymphocytes (%) (Auto) 7 % (24-48) Monocytes (%) (Auto) 5 % (0-9) Eosinophils (%) (Auto) 0 % (0-3) Basophils (%) (Auto) 0 % (0-3) Neutrophils # (Auto) 21.5 x10^3uL (1.8-7.7) Lymphocytes # (Auto) 1.7 x10^3/uL (1.0-4.8) Monocytes # (Auto) 1.1 x10^3/uL (0.0-1.1) Eosinophils # (Auto) 0.1 x10^3/uL (0.0-0.7) Basophils # (Auto) 0.1 x10^3/uL (0.0-0.2) Segmented Neutrophils % 87 % (35-66) Band Neutrophils % 8 % (0-9) Lymphocytes % 3 % (24-48) Monocytes % 2 % (0-10) Platelet Estimate Adequate (ADEQUATE) Prothrombin Time 11.7 SEC (11.7-14.0) Prothromb Time International Ratio 0.9 (0.8-1.1) Activated Partial Thromboplast Time 30 SEC (24-38) Sodium Level 140 mmol/L (136-145) Potassium Level 3.8 mmol/L (3.5-5.1) Chloride Level 105 mmol/L (98-107) Carbon Dioxide Level 27 mmol/L (21-32) Anion Gap 8 (6-14) Blood Urea Nitrogen 20 mg/dL (7-20) Creatinine 1.0 mg/dL (0.6-1.0) Estimated GFR (Cockcroft-Gault) 66.5 Glucose Level 112 mg/dL (70-99) Lactic Acid Level 1.1 mmol/L (0.4-2.0) Calcium Level 9.2 mg/dL (8.5-10.1) Total Bilirubin 0.2 mg/dL (0.2-1.0) Direct Bilirubin 0.1 mg/dL (0.0-0.2) Aspartate Amino Transf (AST/SGOT) 12 U/L (15-37) Alanine Aminotransferase (ALT/SGPT) 15 U/L (14-59) Alkaline Phosphatase 114 U/L (46-116) Creatine Kinase 36 U/L (26-192) Creatine Kinase MB (Mass) < 0.5 ng/mL (0.0-3.6) Creatine Kinase MB Relative Index 1.4 % (0-4) Total Protein 7.8 g/dL (6.4-8.2) Albumin 3.8 g/dL (3.4-5.0) Lipase 94 U/L (73-393) Nasal Screen MRSA (PCR) Negative (Negative) Test 07/30/17 05:25 07/30/17 11:20 07/31/17 04:00 Lactic Acid Level 1.0 mmol/L (0.4-2.0) White Blood Count 26.7 x10^3/uL (4.0-11.0) 13.4 x10^3/uL (4.0-11.0) Red Blood Count 3.90 x10^6/uL (3.50-5.40) 3.61 x10^6/uL (3.50-5.40) Hemoglobin 12.0 g/dL (12.0-15.5) 11.2 g/dL (12.0-15.5) Hematocrit 36.8 % (36.0-47.0) 33.9 % (36.0-47.0) Mean Corpuscular Volume 94 fL (79-100) 94 fL (79-100) Mean Corpuscular Hemoglobin 31 pg (25-35) 31 pg (25-35) Mean Corpuscular Hemoglobin Concent 33 g/dL (31-37) 33 g/dL (31-37) Red Cell Distribution Width 13.1 % (11.5-14.5) 13.1 % (11.5-14.5) Platelet Count 278 x10^3/uL (140-400) 254 x10^3/uL (140-400) Neutrophils (%) (Auto) 89 % (31-73) 82 % (31-73) Lymphocytes (%) (Auto) 7 % (24-48) 13 % (24-48) Monocytes (%) (Auto) 4 % (0-9) 3 % (0-9) Eosinophils (%) (Auto) 0 % (0-3) 1 % (0-3) Basophils (%) (Auto) 0 % (0-3) 1 % (0-3) Neutrophils # (Auto) 23.8 x10^3uL (1.8-7.7) 10.9 x10^3uL (1.8-7.7) Lymphocytes # (Auto) 1.8 x10^3/uL (1.0-4.8) 1.8 x10^3/uL (1.0-4.8) Monocytes # (Auto) 1.0 x10^3/uL (0.0-1.1) 0.4 x10^3/uL (0.0-1.1) Eosinophils # (Auto) 0.0 x10^3/uL (0.0-0.7) 0.2 x10^3/uL (0.0-0.7) Basophils # (Auto) 0.1 x10^3/uL (0.0-0.2) 0.1 x10^3/uL (0.0-0.2) Sodium Level 139 mmol/L (136-145) Potassium Level 3.5 mmol/L (3.5-5.1) Chloride Level 106 mmol/L (98-107) Carbon Dioxide Level 27 mmol/L (21-32) Anion Gap 6 (6-14) Blood Urea Nitrogen 12 mg/dL (7-20) Creatinine 0.7 mg/dL (0.6-1.0) Estimated GFR (Cockcroft-Gault) 100.4 Glucose Level 106 mg/dL (70-99) Calcium Level 8.1 mg/dL (8.5-10.1) Laboratory Tests Test 07/31/17 04:00 White Blood Count 13.4 x10^3/uL (4.0-11.0) Red Blood Count 3.61 x10^6/uL (3.50-5.40) Hemoglobin 11.2 g/dL (12.0-15.5) Hematocrit 33.9 % (36.0-47.0) Mean Corpuscular Volume 94 fL (79-100) Mean Corpuscular Hemoglobin 31 pg (25-35) Mean Corpuscular Hemoglobin Concent 33 g/dL (31-37) Red Cell Distribution Width 13.1 % (11.5-14.5) Platelet Count 254 x10^3/uL (140-400) Neutrophils (%) (Auto) 82 % (31-73) Lymphocytes (%) (Auto) 13 % (24-48) Monocytes (%) (Auto) 3 % (0-9) Eosinophils (%) (Auto) 1 % (0-3) Basophils (%) (Auto) 1 % (0-3) Neutrophils # (Auto) 10.9 x10^3uL (1.8-7.7) Lymphocytes # (Auto) 1.8 x10^3/uL (1.0-4.8) Monocytes # (Auto) 0.4 x10^3/uL (0.0-1.1) Eosinophils # (Auto) 0.2 x10^3/uL (0.0-0.7) Basophils # (Auto) 0.1 x10^3/uL (0.0-0.2) Sodium Level 139 mmol/L (136-145) Potassium Level 3.5 mmol/L (3.5-5.1) Chloride Level 106 mmol/L (98-107) Carbon Dioxide Level 27 mmol/L (21-32) Anion Gap 6 (6-14) Blood Urea Nitrogen 12 mg/dL (7-20) Creatinine 0.7 mg/dL (0.6-1.0) Estimated GFR (Cockcroft-Gault) 100.4 Glucose Level 106 mg/dL (70-99) Calcium Level 8.1 mg/dL (8.5-10.1) Microbiology 07/29/17 Wet Prep - Final, Complete 07/29/17 Urine Culture - Preliminary, Resulted 07/29/17 Urine Culture Result 1 (VIVIAN) - Preliminary, Resulted Medications Current Medications Morphine Sulfate 4 mg PRN Q15MIN PRN IV/SQ PAIN GREATER THAN 3/10 Last administered on 07/30/17 02:20; Start 07/29/17 at 22:15; Stop 07/30/17 at 22 :14; Status DC Sodium Chloride 1,000 ml @ 1,000 mls/hr Q1H IV Last administered on 22:34; Start 07/29/17 at 22:30; Stop 07/29/17 at 23:29; Status DC Ondansetron HCl (Zofran) 4 mg 1X ONCE IV Last administered on 07/29/17 22:34 ; Start 07/29/17 at 22:30; Stop 07/29/17 at 22:31; Status DC Iohexol (Omnipaque 300 Mg/ml) 100 ml 1X ONCE IV Last administered on 23:38; Start 07/29/17 at 23:30; Stop 07/29/17 at 23:31; Status DC Info (Do NOT chart on this entry -- for MONITORING) 1 each PRN DAILY PRN MC SEE COMMENTS; Start 07/29/17 at 23:15; Stop 07/31/17 at 23:14 Ceftriaxone Sodium 50 ml @ 100 mls/hr 1X ONCE IV Last administered on 00:26; Start 07/30/17 at 00:30; Stop 07/30/17 at 00:59; Status DC Metronidazole 100 ml @ 100 mls/hr Q8HRS IV Last administered on 07/30/17 21: 23; Start 07/30/17 at 01:00; Stop 07/31/17 at 04:09; Status DC Sodium Chloride 1,000 ml @ 1,000 mls/hr 1X ONCE IV Last administered on 07/30 00:48; Start 07/30/17 at 01:00; Stop 07/30/17 at 01:59; Status DC Acetaminophen (Tylenol) 1,000 mg 1X ONCE PO Last administered on 07/30/17 00 :53; Start 07/30/17 at 01:00; Stop 07/30/17 at 01:01; Status DC Doxycycline Hyclate 100 mg/ Dextrose 100 ml @ 50 mls/hr BID IV Last administered on 07/30/17 21:24; Start 07/30/17 at 02:00; Stop 07/31/17 at 04 :09; Status DC Ondansetron HCl (Zofran) 4 mg PRN Q8HRS PRN IV NAUSEA/VOMITING Last administered on 07/30/17 11:00; Start 07/30/17 at 01:15; Stop 07/31/17 at 01 :14; Status DC Morphine Sulfate 4 mg PRN Q2HR PRN IV SEVERE PAIN Last administered on 21:30; Start 07/30/17 at 01:15; Stop 08/01/17 at 01:15 Info (Do NOT chart on this placeholder) 1 each 1X ONCE MC ; Start 07/30/17 at 09:00; Stop 07/30/17 at 09:01; Status UNV Influenza Virus Vaccine Quadrival (Fluarix Quad [id number] Syringe) 0.5 ml ONCE ONCE VAX IM Last administered on 07/30/17 08:59; Start 07/30/17 at 09:00; Stop 07/30/17 at 09:01; Status DC Lactobacillus Rhamnosus (Culturelle) 1 cap BID PO Last administered on 08:30; Start 07/30/17 at 09:00 Ceftriaxone Sodium 1 gm/ Dextrose 50 ml @ 100 mls/hr Q24H IV ; Start 07/30/17 at 11:15; Stop 07/30/17 at 11:21; Status DC Ceftriaxone Sodium (Rocephin) 1 gm Q24H IVP Last administered on 07/30/17 12: 10; Start 07/30/17 at 12:00; Stop 07/31/17 at 13:33; Status DC Fentanyl Citrate (Fentanyl 2ml Vial) 75 mcg PRN Q2HR PRN IV PAIN Last administered on 07/30/17 15:40; Start 07/30/17 at 15:30 Oxycodone/ Acetaminophen (Percocet 5/325) 1 tab PRN Q4HRS PRN PO PAIN; Start 07/30/17 at 17:00 Oxycodone/ Acetaminophen (Percocet 5/325) 2 tab PRN Q4HRS PRN PO PAIN Last administered on 07/31/17 10:37; Start 07/30/17 at 17:00 Sodium Chloride (Saline Mist Nasal) 1 soledad PRN Q1HR PRN NS NASAL CONGESTION; Start 07/31/17 at 00:30 Diphenhydramine HCl (Benadryl) 25 mg 1X ONCE PO Last administered on 01:59; Start 07/31/17 at 02:30; Stop 07/31/17 at 02:31; Status DC Doxycycline Hyclate (Vibra-Tab) 100 mg BID PO Last administered on 07/31/17 08:30; Start 07/31/17 at 09:00 Metronidazole (Flagyl) 500 mg Q8HRS PO Last administered on 07/31/17 08:30; Start 07/31/17 at 06:00 Docusate Sodium (Colace) 100 mg PRN DAILY PRN PO CONSTIPATION Last administered on 07/31/17 08:30; Start 07/31/17 at 07:15 Cefpodoxime Proxetil (Vantin) 200 mg BID PO ; Start 07/31/17 at 14:00 Active Scripts Active No Active Prescriptions or Reported Medications Vitals/I & O Vital Sign - Last 24 Hours 07/30/17 07/30/17 07/30/17 07/30/17 15:40 16:00 17:09 17:16 Temp 98.1 98.1 Pulse 88 Resp 20 16 B/P (MAP) 113/73 (86) Pulse Ox 98 94 O2 Delivery Room Air Room Air Room Air Room Air 07/30/17 07/30/17 07/30/17 07/30/17 19:00 20:00 21:30 22:00 Temp 98.1 98.1 Pulse 93 Resp 18 20 20 B/P (MAP) 113/61 (78) Pulse Ox 97 97 97 O2 Delivery Room Air Room Air Room Air Room Air 07/30/17 07/30/17 07/30/17 07/31/17 22:14 23:00 23:14 03:11 Temp 97.5 97.9 97.5 97.9 Pulse 86 80 Resp 20 20 20 20 B/P (MAP) 116/71 (86) 107/58 (74) Pulse Ox 97 97 97 96 O2 Delivery Room Air Room Air Room Air 07/31/17 07/31/17 07/31/17 07/31/17 06:32 08:00 08:15 10:37 Temp 97.3 97.3 Pulse 95 Resp 20 16 B/P (MAP) 125/72 (89) Pulse Ox 96 95 O2 Delivery Room Air Room Air Room Air Room Air 07/31/17 07/31/17 11:57 12:14 Temp 98.1 98.1 Pulse 82 Resp 16 B/P (MAP) 118/70 (86) Pulse Ox 96 O2 Delivery Room Air Room Air Intake and Output 07/30/17 07/30/17 07/31/17 15:00 23:00 07:00 Intake Total 240 ml 400 ml Output Total 350 ml Balance -110 ml 400 ml PEGGY MARISCAL III DO Jul 31, 2017 14:29
== END 2017-07-31 12:42 | disposition home or self-care (01) | DRG 760 ==
LOC: ER 21:44 → 1 WEST ICU 07-30 00:35 → 4 NORTH 07-30 16:10 → UNDODISIN 07-31 10:16
PROVIDERS: ADMIT Internal Medicine; ATTEND Internal Medicine
DX: N94.6 Dysmenorrhea, unspecified (principal); N12 Tubulo-interstitial nephritis, not specified as acute or chronic; R10.9 Unspecified abdominal pain; F12.90 Cannabis use, unspecified, uncomplicated; G43.909 Migraine, unspecified, not intractable, without status migrainosus; Z87.440 Personal history of urinary (tract) infections; Z23 Encounter for immunization; Z82.49 Family history of ischemic heart disease and other diseases of the circulatory system
CPT/HCPCS: 36415; 74177; 76830; 76856; 80048; 80076; 80307; 81001; 81025; 82553; 83605; 83690; 85007; 85025; 85610; 85730; 87086; 87491; 87591; 87641; 90686; 96361; 96374; 96375; J0690; J0696; J2270; J2405; J3010; J3490; J7030; Q0111; Q0163; Q9967; 97530; 99285-25; G0479

== ENCOUNTER 2017-08-03 17:39 | Emergency (ER) | payer OTHER ==
[~2017-08-03] VITALS: Ht 177.8 cm; Wt 63.5 kg
[2017-08-03] MEDS ORDERED: NAPR500T PO (18:14)
--- NOTE | 2017-08-03 18:15 | PHYS DOC ---
Past Medical History Past Medical History: Migraines, UTI Additional Past Medical Histor: 5 months post Past Surgical History: No Surgical History Alcohol Use: None Drug Use: None Adult General Chief Complaint Chief Complaint: SEXUALLY TRANSMITTED DISEASE HPI HPI Patient is a 27 year old returns to the emergency department for treatment of gonorrhea. Patient was evaluated in the emergency department July 29 for pelvic pain. At that time she was admitted to the hospital for urinary symptoms. Patient was given Rocephin IV as well as doxycycline IV. Patient was discharged home. When she was notified that her gonorrhea was positive. She reports that she's had sexual intercourse with her partner and fears that she may have contracted the gonorrhea again. Patient states she is monogamous with her partner. Review of Systems Review of Systems Constitutional: Denies fever or chills [] Eyes: Denies change in visual acuity, redness, or eye pain [] HENT: Denies nasal congestion or sore throat [] Respiratory: Denies cough or shortness of breath [] Cardiovascular: No additional information not addressed in HPI [] GI: Denies abdominal pain, nausea, vomiting, bloody stools or diarrhea [] : Denies dysuria or hematuria, denies vaginal discharge, complain of pelvic pain [] Musculoskeletal: Denies back pain or joint pain [] Integument: Denies rash or skin lesions [] Neurologic: Denies headache, focal weakness or sensory changes [] Endocrine: Denies polyuria or polydipsia [] All other systems were reviewed and found to be within normal limits, except as documented in this note. Current Medications Current Medications Current Medications Medications (Trade) Dose Ordered Sig/Oanh Start Time Stop Time Status Last Admin Dose Admin Ceftriaxone Sodium (Rocephin Im) 1 gm 1X ONCE 08/03/17 18:30 08/03/17 18:31 Ketorolac Tromethamine (Toradol Im) 60 mg 1X ONCE 08/03/17 18:30 08/03/17 18:31 Allergies Allergies Allergies Coded Allergies Type Severity Reaction Last Updated Verified No Known Drug Allergies 10/28/13 No Physical Exam Physical Exam Constitutional: Well developed, well nourished, no acute distress, non-toxic appearance. [] HENT: Normocephalic, atraumatic, bilateral external ears normal, oropharynx moist, no oral exudates, nose normal. [] Eyes: PERRLA, EOMI, conjunctiva normal, no discharge. [] Neck: Normal range of motion, no tenderness, supple, no lymphadenopathy, no stridor. [] Cardiovascular:Heart rate regular rhythm, no murmur [] Lungs & Thorax: Bilateral breath sounds clear to auscultation [] Abdomen: Bowel sounds normal, soft, no tenderness, no masses, no pulsatile masses. [] Skin: Warm, dry, no erythema, no rash. [] Back: No tenderness, no CVA tenderness. [] Neurologic: Alert and oriented X 3, normal motor function, normal sensory function, no focal deficits noted. [] EKG EKG [] Radiology/Procedures Radiology/Procedures [] Course & Med Decision Making Course & Med Decision Making Rocephin 1 g IM. Toradol 60 mg IM Exam was deferred as patient is here for treatment of a diagnosed gonorrhea infection. She is requesting a refill of Percocet. I did decline that request. She is offered Naprosyn. Pertinent Labs and Imaging studies reviewed. (See chart for details) [] Dragon Disclaimer Dragon Disclaimer This electronic medical record was generated, in whole or in part, using a voice recognition dictation system. Departure Departure Impression: Primary Impression: Gonorrhea Disposition: 01 HOME, SELF-CARE Condition: STABLE Referrals: NO PCP (PCP) [facility] Patient Instructions: Gonorrhea, Females and Males, Pelvic Inflammatory Disease Scripts Naproxen (NAPROSYN) 500 Mg Tablet 500 MG PO BID Y for PAIN, #20 TAB Prov: JOSSELINE PRINCE APRN 08/03/17 JOSSELINE PRINCE APRN Aug 03, 2017 18:15
[2017-08-03 18:17] VITALS: BP 117/65
[2017-08-03] MEDS ORDERED: KETOROLAC 60 MG/2 ML INJ. IM ONE (18:30)
[2017-08-03] MEDS ORDERED: cefTRIAXone IM 1 GM VIAL IM ONE (18:30)
== END 2017-08-03 18:33 | disposition home or self-care (01) ==
LOC: ER 17:39
DX: A54.9 Gonococcal infection, unspecified (principal); G43.909 Migraine, unspecified, not intractable, without status migrainosus; Z87.440 Personal history of urinary (tract) infections
CPT/HCPCS: 96372; 99284; J0696; J1885

== ENCOUNTER 2018-11-02 09:51 | Emergency (ER) | payer MEDICAID, OTHER ==
[~2018-11-02] VITALS: Ht 157.5 cm; Wt 61.2 kg
[~2018-11-02 09:51] MED LIST changes: +NAPR-683 PO
[2018-11-02 09:55] VITALS: BP 139/93
--- NOTE | 2018-11-02 10:38 | PHYS DOC ---
Past Medical History Past Medical History: Migraines, UTI, Other Additional Past Medical Histor: NIGHTMARES Past Surgical History: No Surgical History Alcohol Use: None Drug Use: None Adult General Chief Complaint Chief Complaint: ABSCESS [place] [employer] HPI Patient is a 28 year old female who presents to be evaluated for abscesses. Patient states she noted 5 days ago. She has abscesses to bilateral antecubital joint and right foot. On further investigation, I asked patient if she does drugs, patient admits to "practicing". I asked patient what she means by practicing, she states she has been injecting herself practicing to use needles , on asking her what she is using to inject herself with, she states morphine. I asked patient where she is getting the morphine, she will not give me the information. She is asking if we can give her something for pain for home use. Informed patient I will not give her anything for pain apart from OTC medicines considering her hx. D/C Bactrim for recommended, warm compresses to the area. Follow-up with general surgeon or PCP in 1-2 weeks. Her abscesses are not ready to be drained. Patient was also given Rocephin IM in the ED. Review of Systems Review of Systems Constitutional: Denies fever or chills [] Eyes: Denies change in visual acuity, redness, or eye pain [] HENT: Denies nasal congestion or sore throat [] Respiratory: Denies cough or shortness of breath [] Cardiovascular: No additional information not addressed in HPI [] GI: Denies abdominal pain, nausea, vomiting, bloody stools or diarrhea [] : Denies dysuria or hematuria [] Musculoskeletal: Denies back pain or joint pain [] Integument: Abscess and cellulitis bilateral antecubital joint, right foot. Neurologic: Denies headache, focal weakness or sensory changes [] All other systems were reviewed and found to be within normal limits, except as documented in this note. Allergies Allergies Allergies Coded Allergies Type Severity Reaction Last Updated Verified No Known Drug Allergies 10/28/13 No Physical Exam Physical Exam Constitutional: Well developed, well nourished, no acute distress, non-toxic appearance. [] HENT: Normocephalic, atraumatic, bilateral external ears normal, oropharynx moist, no oral exudates, nose normal. [] Eyes: PERRLA, EOMI, conjunctiva normal, no discharge. [] Neck: Normal range of motion, no tenderness, supple, no stridor. [] Cardiovascular:Heart rate regular rhythm, no murmur [] Lungs & Thorax: Bilateral breath sounds clear to auscultation [] Abdomen: Bowel sounds normal, soft, no tenderness, no masses, no pulsatile masses. [] Skin: Bilateral antecubital joint with none indurated erythematous area is approximately 3 x 3 cm consistent with abscess and cellulitis. The areas are warm tender to touch firm but not fluctuant. Similar lesion is noted on the right ventral foot. +2 bilateral pedal pulses, +2 bilateral radial pulses. Back: No tenderness, no CVA tenderness. [] Extremities: No tenderness, no cyanosis, no clubbing, ROM intact, no edema. [] Neurologic: Alert and oriented X 3, normal motor function, normal sensory function, no focal deficits noted. [] Psychologic: Affect normal, judgement normal, mood normal. [] Current Patient Data Vital Signs Vital Signs Date Time Temp Pulse Resp B/P (MAP) Pulse Ox O2 Delivery O2 Flow Rate FiO2 11/02/18 09:55 98.8 105 16 139/93 (108) 98 Room Air 98.8 EKG EKG [] Radiology/Procedures Radiology/Procedures [] Course & Med Decision Making Course & Med Decision Making Pertinent Labs and Imaging studies reviewed. (See chart for details) His is a 28-year-old female patient presenting to the ED today with abscesses on the antecubital joints as well as right foot from IV drug use. Patient was given Rocephin IM in the ED, discharged on Bactrim. Abscesses are not ready to drain, tetanus up-to-date. Talked to patient again is to using IV drugs. She was asking for pain medicine for home use, and requested her to take Tylenol/ Motrin. Informed her we will not give her anything for pain prescription strength considering her history. Dragon Disclaimer Dragon Disclaimer This electronic medical record was generated, in whole or in part, using a voice recognition dictation system. Departure Departure Impression: Primary Impression: Cellulitis and abscess of upper extremity Additional Impression: Cellulitis and abscess of toe of right foot Disposition: 01 HOME, SELF-CARE Condition: STABLE Referrals: NO PCP (PCP) follow up in 1 week AMADO REEVES MD Patient Instructions: Abscess, Cellulitis, [id number] Additional Instructions: You were evaluated in the emergency room and noted to have abscesses. We put you on antibiotics, ensure you complete them. Continue applying warm compresses to the area. Please do not use any IV drugs Scripts Sulfamethoxazole/Trimethoprim (BACTRIM DS TABLET) 1 Each Tablet 1 TAB PO BID, #20 TAB Prov: MANUEL BERTRAND APRN 11/02/18 Problem Qualifiers MANUEL BERTRAND APRN Nov 02, 2018 10:38
[2018-11-02] MEDS ORDERED: SULF1TAB24 PO (10:45)
[2018-11-02] MEDS ORDERED: NAPROXEN 500 MG TABLET PO STA (10:55)
[2018-11-02] MEDS ORDERED: HYDROcodone/APAP 5/325MG 1 TAB TABLET PO ONE (11:00)
[2018-11-02] MEDS ORDERED: cefTRIAXone IM 1 GM VIAL IM ONE (11:00)
== END 2018-11-02 11:11 | disposition home or self-care (01) ==
LOC: ER 09:51
DX: L03.031 Cellulitis of right toe (principal); L03.114 Cellulitis of left upper limb; L03.113 Cellulitis of right upper limb; G43.909 Migraine, unspecified, not intractable, without status migrainosus
CPT/HCPCS: 96372; 99283; J0696

== ENCOUNTER 2020-03-03 17:39 | Emergency (ER) | payer MEDICAID, OTHER ==
[~2020-03-03] VITALS: Ht 157.5 cm; Wt 61.2 kg
[~2020-03-03 17:39] MED LIST changes: +SULF1TAB24 PO
--- NOTE | 2020-03-03 17:55 | PHYS DOC ---
Past Medical History Past Medical History: Migraines, UTI, Other Additional Past Medical Histor: NIGHTMARES (WARDVISHNU Gagnon DO) Past Surgical History: No Surgical History (VISHNU HOPPER DO) Smoking Status: Never Smoker Alcohol Use: None Drug Use: None (VISHNU HOPPER DO) General Adult EDM: Chief Complaint: ALTERED MENTAL STATUS HPI: HPI: Patient is a 29 year old female brought by EMS with chief complaint of overdose. EMS state that patient was found in a parking lot of a liquor store. 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 Patient had 2 children in the backseat. Children state that patient may have taken sleeping pills. Patient was given Narcan 2 mg IV but patient did not respond to that. Patient's oxygenation is 94% on room air. Patient blood glucose was 132. (VISHNU HOPPER DO) Review of Systems: Review of Systems: Unable to perform review of systems secondary to patient's mental status. (VISHNU HOPPER DO) Heart Score: Risk Factors: Risk Factors: DM, Current or recent (<one month) smoker, HTN, HLP, family history of CAD, obesity. Risk Scores: Score 0 - 3: 2.5% MACE over next 6 weeks - Discharge Home Score 4 - 6: 20.3% MACE over next 6 weeks - Admit for Clinical Observation Score 7 - 10: 72.7% MACE over next 6 weeks - Early Invasive Strategies (VISHNU HOPPER DO) Allergies: Allergies: Allergies Coded Allergies Type Severity Reaction Last Updated Verified No Known Drug Allergies 10/28/13 No (VISHNU HOPPER DO) Physical Exam: PE: Constitutional: Well developed, well nourished, no acute distress, non-toxic appearance. [] HENT: Normocephalic, atraumatic Eyes: EOMI Neck: Normal range of motion, Supple Cardiovascular:Heart rate regular rhythm Lungs & Thorax: Bilateral breath sounds clear to auscultation [] Abdomen: Bowel sounds normal, soft, no tenderness Extremities: No lower extremity edema Neurologic: Sleeping but wakes up to sternal rub (VISHNU HOPPER DO) Current Patient Data: Labs: Laboratory Tests Test 03/03/20 17:48 Glucose (Fingerstick) 100 mg/dL (70-99) H (VISHNU HOPPER DO) EKG: EKG: EKG interpretation: 17: 46 on 03/03/2020 HR: 112 Sinus tachycardia Regular intervals Normal axis Nonspecific ST changes (VISHNU HOPPER DO) Radiology/Procedures: Radiology/Procedures: [] (VISHNU HOPPER DO) Course & Med Decision Making: Course & Med Decision Making Ordered labs, UA, urine , tox screen. Also ordered IV fluids. EKG shows sinus tachycardia. Patient CARE turned over to Dr. Dunaway at shift change. (VISHNU HOPPER DO) Course & Med Decision Making Assumed care at shift change 1800hrs. Disposition pending labs and re-evaluation. Patient examined 0700hrs. Patient drowsy. Localized to pain. Airway intact. Vital signs stable. Re-examined @ 2013 Patient drowsy. Localized to pain. Airway intact. Vital signs stable Re-examined @ 2100hrs mother at bedside States patient previously had rx for xanax. States patient has a rx sleeping medication. Patient continues to be drowsy but no more arousable. Patient states she takes klonipin for sleep States she was trying to get high today. She denies suicidal attempt. Re-exam 0005 Patient awake axox4 denies SI. wants to go home. (EVERETTE JEFFERS DO) Trish Disclaimer: Trish Disclaimer: This electronic medical record was generated, in whole or in part, using a voice recognition dictation system. (VISHNU HOPPER DO) Departure Departure Impression: Primary Impression: Altered mental status Additional Impression: Overdose Disposition: 01 HOME, SELF-CARE Referrals: NO PCP (PCP) Patient Instructions: Overdose, Adult Justicifation of Admission Dx: Justifications for Admission: Justification of Admission Dx: No (VISHNU HOPPER DO) VISHNU HOPPER DO Mar 03, 2020 17:55 EVERETTE JEFFERS DO Mar 03, 2020 19:23
[2020-03-03] MEDS ORDERED: IV NORMAL SALINE 1000ML BAG 1,000 ML IV ONE (18:00)
[2020-03-03 18:03] LABS: BILIRUBIN,URINE SMALL (NEG); CLARITY,URINE CLOUDY; COLOR,URINE AMBER; NITRITE,URINE NEGATIVE (NEG); PROTEIN,URINE NEGATIVE (NEG-TRACE)
[2020-03-03 18:05] LABS: BASO # 0.1 x10^3/uL (0.0-0.2); BASO % 1 % (0-3); EOS % 1 % (0-3); HEMOGLOBIN 13.3 g/dL (12.0-15.5); LYMPH # 2.6 x10^3/uL (1.0-4.8); LYMPH % 27 % (24-48); MEAN CORPUSCULAR HEMOGLOBIN 32 pg (25-35); MEAN CORPUSCULAR HGB CONC 35 g/dL (31-37); MEAN CORPUSCULAR VOLUME 92 fL (79-100); MONO # 0.8 x10^3/uL (0.0-1.1); MONO % 9 % (0-9); NEUT # 6.2 x10^3/uL (1.8-7.7); NEUT % 63 % (31-73); PLATELET COUNT 323 x10^3/uL (140-400); RED BLOOD COUNT 4.12 x10^6/uL (3.50-5.40); RED CELL DISTRIBUTION WIDTH 13.2 % (11.5-14.5); WHITE BLOOD COUNT 9.8 x10^3/uL (4.0-11.0)
[2020-03-03 18:11] LABS: AMPHETAMINE/METHAMPHETAMINE POS (NEG); BARBITURATES NEG (NEG); BENZODIAZEPINES POS (NEG); CALCIUM 8.5 mg/dL (8.5-10.1); CANNABINOIDS POS (NEG); COCAINE NEG (NEG); GFR 65.6; METHADONE NEG (NEG); OPIATES NEG (NEG); PHENCYCLIDINE NEG (NEG); POTASSIUM 3.3 mmol/L (3.5-5.1)
[2020-03-03 18:17] LABS: ACETAMIN < 2.0 mcg/ml (10-30); ALBUMIN/GLOBULIN RATIO 1.3 (1.0-1.7); ETHANOL < 10 mg/dL (0-10); SALIC < 2.8 mg/dL (2.8-20.0); TOTAL BILIRUBIN 0.6 mg/dL (0.2-1.0); TOTAL PROTEIN 7.1 g/dL (6.4-8.2)
[2020-03-03 18:40] LABS: BACTERIA,URINE 0 /HPF (0-FEW); HYALINE CASTS, URINE OCCASIONAL /HPF; RBC,URINE 0 /HPF (0-2); SQUAMOUS EPITHELIAL CELL,UR OCC /LPF
[2020-03-04 00:27] VITALS: BP 133/81
--- NOTE | 2020-03-04 10:22 | EKG ---
[facility] [address] [place] [address] Test Date: 2020-03-03 Test Time: 17:45:34 Pat Name: NATALIA FREDERICK Department: Room: Gender: F X Ray Consultant: : 1990 Requested By: VISHNU HOPPER Order Number: [id number] Reading MD: Gualberto Gomez Measurements Intervals [place] Rate: 112 P: 42 ID: [id number] QRS: 28 QRSD: 98 T: 28 QT: 336 QTc: 460 Interpretive Statements SINUS TACHYCARDIA NON SPECIFIC ST-T WAVE CHANGES RI6.02 Compared to ECG 10/28/2013 16:16:45 Sinus rhythm no longer present Electronically Signed On 03-31-2020 12:37:02 CDT by Gualberto Gomez
== END 2020-03-04 00:30 | disposition home or self-care (01) ==
LOC: ER 17:39
DX: T50.7X1A Poisoning by analeptics and opioid receptor antagonists, accidental (unintentional), initial encounter (principal); R41.82 Altered mental status, unspecified; G43.909 Migraine, unspecified, not intractable, without status migrainosus; Y92.89 Other specified places as the place of occurrence of the external cause
CPT/HCPCS: 36415; 80053; 80307; 80329; 81001; 81025; 82962; 83605; 85025; 87086; 93005; 96360; 99285; G0480; J7030

== ENCOUNTER 2020-05-14 10:49 | Emergency (ER) | payer OTHER ==
[~2020-05-14] VITALS: Ht 157.5 cm; Wt 72.9 kg
[2020-05-14 11:32] VITALS: BP 132/91
[2020-05-14] MEDS ORDERED: POLY10DR3 EACHEYE (11:59)
--- NOTE | 2020-05-14 12:00 | PHYS DOC ---
Past Medical History Past Medical History: Migraines, UTI, Other Additional Past Medical Histor: NIGHTMARES, HPV (LYNN MCCURDY MILL FEEDER) Past Surgical History: No Surgical History (LYNN MCCURDY MILL FEEDER) Smoking Status: Never Smoker Alcohol Use: None Drug Use: None (LYNN MCCURDY APRN) General Adult EDM: Chief Complaint: EYE PROBLEMS HPI: HPI: Patient is a 29 year old Female who presents with bilateral swelling of eyes, pink conjunctiva, purulent discharge, tearing x1 week. The symptoms started in one eye and then moved to the other eye. She states that they are itchy and watering. She states that she has no vision changes. She did not bring her glasses with her but she does wear glasses. She has a history of migraine, UTI and HPV. She denies any pain but her discomfort is at an 8 out of 10. Bilateral eyes plus swelling but there is no redness or cellulitis seen. (LYNN MCCURDY MILL FEEDER) Review of Systems: Review of Systems: Constitutional: Denies fever or chills. [] Eyes: Denies change in visual acuity. Bilateral eye purulent discharge, itching, swelling. [] HENT: Denies nasal congestion or sore throat. [] Respiratory: Denies cough or shortness of breath. [] Cardiovascular: Denies chest pain. Bilateral eye 1-2+ swelling edema. [] GI: Denies abdominal pain, nausea, vomiting, bloody stools or diarrhea. [] : Denies dysuria. [] Musculoskeletal: Denies back pain or joint pain. [] Integument: Denies rash. [] Neurologic: Denies headache, focal weakness or sensory changes. [] Endocrine: Denies polyuria or polydipsia. [] Lymphatic: Denies swollen glands. [] Psychiatric: Denies depression or anxiety. [] (LYNN MCCURDY MILL FEEDER) Heart Score: Risk Factors: Risk Factors: DM, Current or recent (<one month) smoker, HTN, HLP, family history of CAD, obesity. Risk Scores: Score 0 - 3: 2.5% MACE over next 6 weeks - Discharge Home Score 4 - 6: 20.3% MACE over next 6 weeks - Admit for Clinical Observation Score 7 - 10: 72.7% MACE over next 6 weeks - Early Invasive Strategies (BAFLYNN SYKES MILL FEEDER) Allergies: Allergies: Allergies Coded Allergies Type Severity Reaction Last Updated Verified No Known Drug Allergies 10/28/13 No ([facility] Physical Exam: PE: Constitutional: Well developed, well nourished, no acute distress, non-toxic appearance. [] HENT: Normocephalic, atraumatic, bilateral external ears normal, oropharynx mois t, no oral exudates, nose normal. [] Eyes: PERRLA, EOMI, conjunctiva pink, purulent discharge, 1-2+ swelling. [] Neck: Normal range of motion, no tenderness, supple, no stridor. [] Cardiovascular:Heart rate regular rhythm, no murmur [] Lungs & Thorax: Bilateral breath sounds clear to auscultation [] Abdomen: Bowel sounds normal, soft, no tenderness, no masses, no pulsatile masses. [] Skin: Warm, dry, no erythema, no rash. [] Back: No tenderness, no CVA tenderness. [] Extremities: No tenderness, no cyanosis, no clubbing, ROM intact, no edema. [] Neurologic: Alert and oriented X 3, normal motor function, normal sensory function, no focal deficits noted. [] Psychologic: Affect normal, judgement normal, mood normal. [] ([facility]) Current Patient Data: Vital Signs: Vital Signs Date Time Temp Pulse Resp B/P (MAP) Pulse Ox O2 Delivery O2 Flow Rate FiO2 05/14/20 11:32 98.2 72 14 132/91 (105) 97 Room Air 98.2 ([facility] EKG: EKG: [] [facility] Radiology/Procedures: Radiology/Procedures: [] ([facility] Course & Med Decision Making: Course & Med Decision Making Pertinent Labs and Imaging studies reviewed. (See chart for details) See HPI. PERRLA. Alert and oriented x4. Ambulatory to steady gait. Speaks in full complete sentences. Patient denies headache, dizziness, fever, nasal congestion, vision changes, cough, abdominal pain, nausea, vomiting, diarrhea. Left eye visual acuity is 20/100, right eye visual acuity is 20/100, bilateral eye acuity is 20/40. She denies any kind of injury to her eyes. Patient denies any pain with movement of her eyes. Patient is prescribed antibiotic drops for her eyes and she is to follow-up primary care or a eye doctor. [] (LYNN MCCURDY APRN) Course & Med Decision Making I have reviewed the PA/ANATOMIC PATHOLOGY ASSISTANT's note and Plan of Care. I was available for consu ltation as needed during the patient's visit in the emergency department. I agree with the clinical impression, plans and disposition. (LOLA MARTINEZ MD) Dragon Disclaimer: Dragon Disclaimer: This electronic medical record was generated, in whole or in part, using a voice recognition dictation system. (LYNN MCCURDY APRN) Departure Departure Impression: Primary Impression: Conjunctivitis Qualified Codes: H10.33 - Unspecified acute conjunctivitis, bilateral Disposition: HOME, SELF-CARE Condition: STABLE Referrals: NO PCP (PCP) Yamil LAGUNA MD Patient Instructions: Conjunctivitis (Viral and Bacterial) Additional Instructions: This is very contagious and you should stay away from elderly her children if possible. Use eyedrops as prescribed. I have referred you to an eye doctor for follow-up and go to primary care. Scripts Polymyxin B Sulf/Trimethoprim (POLYMYXIN B-TMP EYE DROPS) 10 Ml Drops 1 DROP EACHEYE QID for 7 Days, #10 ML 0 Refills Prov: LYNN MCCURDY APRN 05/14/20 Justicifation of Admission Dx: Justifications for Admission: Justification of Admission Dx: N/A (LYNN MCCURDY APRN) LYNN MCCURDY APRN May 14, 2020 12:00 LOLA MARTINEZ MD May 14, 2020 15:03
== END 2020-05-14 12:04 | disposition home or self-care (01) ==
LOC: ER 10:49
DX: H10.33 Unspecified acute conjunctivitis, bilateral (principal); R60.0 Localized edema; G43.909 Migraine, unspecified, not intractable, without status migrainosus
CPT/HCPCS: 99283